=== PATIENT | female | born 1990 | race Caucasian/White ===

== ENCOUNTER → 2018-08-22 | Outpatient (CLI) | payer OTHER ==
[2018-08-25 07:47] LABS: Hepatits C Virus RNA DETECTED (Not detected); LOG HCV IU/mL 4.76 (<1.08)
== END | disposition home or self-care (01) ==
LOC: LABWHC1 11:58
PROVIDERS: ATTEND Physician Assistant
DX: Z11.59 Encounter for screening for other viral diseases (principal)
CPT/HCPCS: 36415; 87522

== ENCOUNTER → 2018-12-09 | Outpatient (CLI) | payer OTHER ==
[2018-12-09 12:52] LABS: HCT 40.6 % (34.0-46.0); HGB 14.1 gm/dL (11.4-16.0); MCHC 34.7 g/dL (31.0-37.0); MCV 89.3 fL (80.0-100.0); Mean Platelet Volume 6.9; Platelet Count 263 k/uL (150-450); Prothrombin Time 10.4 sec (9.0-12.0); RBC 4.55 m/uL (3.80-5.40); RDW 12.6 % (11.5-15.5); WBC 5.8 k/uL (3.8-10.6)
[2018-12-09 19:05] LABS: Albumin 4.4 g/dL (3.80-4.90); Bilirubin, Conjugated 0.3 mg/dL (0.20-0.40); Bilirubin,Unconjugated 0.6 mg/dL; Globulin 2.2 g/dL (1.6-3.3); Total Bilirubin 0.9 mg/dL (0.3-1.2); Total Protein 6.6 g/dL (6.2-8.2)
== END | disposition home or self-care (01) ==
LOC: LABWHC1 11:36
PROVIDERS: ATTEND Physician Assistant
DX: B18.2 Chronic viral hepatitis C (principal)
CPT/HCPCS: 36415; 80076; 85027; 85610; 87522

== ENCOUNTER → 2018-12-16 | Outpatient (CLI) | payer OTHER ==
--- NOTE | 2018-12-16 11:21 | US ---
EXAMINATION TYPE: US liver DATE OF EXAM: 12/16/2018 COMPARISON: NONE CLINICAL HISTORY: B18.2 Chronic Viral Hepatitis C. Chronic viral hepatitis C EXAM MEASUREMENTS: Liver Length: 15.3 cm Gallbladder Wall: 0.3 cm CBD: 0.3 cm Right Kidney: 10.5 x 4.0 x 5.0 cm Pancreas: wnl Liver: wnl . Homogeneous echotexture. Borders appear smooth and regular. No suspicious mass is seen. Gallbladder: wnl Evidence for sonographic Pearl's sign: no CBD: wnl Right Kidney: wnl IMPRESSION: Hepatic echotexture appears homogeneous despite the patient's known hepatocellular diseas e. No suspicious focal masses seen on today's examination to suggest hepatoma.
== END | disposition home or self-care (01) ==
LOC: RADUSWWP 09:59
PROVIDERS: ATTEND Internal Medicine
DX: B18.2 Chronic viral hepatitis C (principal)
CPT/HCPCS: 76705

== ENCOUNTER 2019-02-08 12:48 | Emergency (ER) | payer OTHER ==
--- NOTE | 2019-02-08 13:26 | ED ---
General Adult HPI - General Chief complaint: Upper Respiratory Infection Stated complaint: cough Time Seen by Provider: 02/08/19 13:09 Source: patient, RN notes reviewed Mode of arrival: ambulatory Limitations: no limitations - History of Present Illness Initial comments: 28-year-old female presents to the emergency department for a chief complaint of cough. patient has had a dry cough for 3 days. States she has also been congested and has had sensation of bilateral ear fullness. No history of fevers. No history of asthma. Patient denies sore throat. Patient denies ear pain. Patient has no other complaints at this time including shortness of breath, chest pain, abdominal pain, nausea or vomiting, headache, or visual changes. - Related Data Previous Rx's Medication Instructions Recorded Fluticasone Propionate [Flonase 1 spray EA NOSTRIL DAILY 7 Days #1 02/08/19 Allergy Relief] bottle Allergies Allergy/AdvReac Type Severity Reaction Status Date / Time No Known Allergies Allergy Verified 02/08/19 13:02 Review of Systems ROS Statement: Those systems with pertinent positive or pertinent negative responses have been documented in the HPI. ROS Other: All systems not noted in ROS Statement are negative. Past Medical History Past Medical History: No Reported History History of Any Multi-Drug Resistant Organisms: None Reported Past Surgical History: No Surgical Hx Reported Past Psychological History: No Psychological Hx Reported Smoking Status: Current every day smoker Past Alcohol Use History: Occasional Past Drug Use History: Marijuana General Exam Limitations: no limitations General appearance: alert, in no apparent distress Head exam: Present: atraumatic, normocephalic, normal inspection Eye exam: Present: normal appearance, PERRL, EOMI. Absent: scleral icterus, conjunctival injection, periorbital swelling ENT exam: Present: normal exam, normal oropharynx, mucous membranes moist, TM's normal bilaterally, normal external ear exam Neck exam: Present: normal inspection. Absent: tenderness, meningismus, lymphad enopathy Respiratory exam: Present: normal lung sounds bilaterally. Absent: respiratory distress, wheezes, rales, rhonchi, stridor Cardiovascular Exam: Present: regular rate, normal rhythm, normal heart sounds. Absent: systolic murmur, diastolic murmur, rubs, gallop, clicks Neurological exam: Present: alert Course Vital Signs 02/08/19 13:00 Temperature 98.0 F Pulse Rate 70 Respiratory 18 Rate Blood Pressure 121/75 O2 Sat by Pulse 98 Oximetry Medical Decision Making - Medical Decision Making She is well appearing. No respiratory distress. Vitals are stable. Patient is 98% on room air. Exam is benign. Lung sounds are clear. Patient does not have any significant past medical history. Chest x-ray shows no acute cardiopulmonary process. Patient likely is viral upper respiratory infection. She does not need antibiotics at this time his symptoms have only been for 3 days. They will follow up with primary care for recheck. Patient is having fullness in bilateral ears and likely is experiencing eustachian tube dysfunction from congestion. She will be given a nasal spray. She will follow up with primary care in 1-2 days and return if she has any worsening symptoms. Disposition Clinical Impression: Upper respiratory tract infection, Eustachian tube dysfunction Disposition: HOME SELF-CARE Condition: Good Instructions (If sedation given, give patient instructions): Upper Respiratory Infection (ED) Additional Instructions: Please use nasal spray as directed. Please follow-up with primary care in 1-2 days. Return to the emergency department if you develop any worsening symptoms. Prescriptions: Fluticasone Propionate [Flonase Allergy Relief] 1 spray EA NOSTRIL DAILY 7 Days #1 bottle Is patient prescribed a controlled substance at d/c from ED?: No Referrals: Tommie Nuñez DO [Primary Care Provider] - 1-2 days Time of Disposition: 13:53
--- NOTE | 2019-02-08 13:39 | XR ---
EXAMINATION TYPE: XR chest 2V DATE OF EXAM: 02/08/2019 COMPARISON: NONE HISTORY: Chest pain TECHNIQUE: Frontal and lateral views of the chest are obtained. FINDINGS: There is no focal air space opacity. No evidence for pneumothorax. No pleural effusion. The cardiac silhouette size is within normal limits. The osseous structures are grossly intact. IMPRESSION: 1. No acute cardiopulmonary process.
[2019-02-08 14:27] VITALS: BP 131/78; PULSE 78; RESP 16; TEMP 97.8
== END 2019-02-08 14:26 | disposition home or self-care (01) ==
LOC: EC 12:48
DX: J06.9 Acute upper respiratory infection, unspecified (principal); H69.83 Other specified disorders of Eustachian tube, bilateral; F17.200 Nicotine dependence, unspecified, uncomplicated
CPT/HCPCS: 71046; 99283

== ENCOUNTER 2019-11-19 21:12 | Inpatient (IN) | payer OTHER ==
[2019-11-19] MEDS ORDERED: SODIUM CHLORIDE 0.9% 1,000 ML IV ONE (21:48)
--- NOTE | 2019-11-19 22:09 | ED ---
General Adult HPI - General Chief complaint: Psychiatric Symptoms Stated complaint: mental health Time Seen by Provider: 11/19/19 21:19 Source: patient, RN notes reviewed, old records reviewed Mode of arrival: ambulatory Limitations: no limitations - History of Present Illness Initial comments: Patient is a 29-year-old female who presents emergency room today with multiple complaints and scattered thoughts. She states she feels that she is dehydrated but is able to urinate. She is here with her grandmother. Poorly patient's mother states that she's been self medicating with narcotics for mental health illness, wants to have her evaluated by EPS.. She denies any suicidal thoughts. She stated that she "wants to talk to somebody". Patient is to smoking marijuana and taking and [place] today. She reports that she has not prescribed gets from friends or off the street. - Related Data Home Medications Medication Instructions Recorded Confirmed No Known Home Medications 11/19/19 11/19/19 Allergies Allergy/AdvReac Type Severity Reaction Status Date / Time No Known Allergies Allergy Verified 11/19/19 22:43 Review of Systems ROS Statement: Those systems with pertinent positive or pertinent negative responses have been documented in the HPI. ROS Other: All systems not noted in ROS Statement are negative. Past Medical History Past Medical History: No Reported History History of Any Multi-Drug Resistant Organisms: None Reported Past Surgical History: No Surgical Hx Reported Past Psychological History: No Psychological Hx Reported Past Alcohol Use History: Occasional Past Drug Use History: Marijuana General Exam - General Exam Comments Initial Comments: 29-year-old female. Scattered conversation. Hyperverbal. Limitations: no limitations General appearance: alert, in no apparent distress Head exam: Present: atraumatic Eye exam: Present: normal appearance, PERRL, EOMI. Absent: scleral icterus, conjunctival injection, periorbital swelling ENT exam: Present: normal exam, mucous membranes moist Neck exam: Present: normal inspection. Absent: tenderness, meningismus, lymphadenopathy Respiratory exam: Present: normal lung sounds bilaterally. Absent: respiratory distress, wheezes, rales, rhonchi, stridor Cardiovascular Exam: Present: regular rate, normal rhythm, normal heart sounds. Absent: systolic murmur, diastolic murmur, rubs, gallop, clicks GI/Abdominal exam: Present: soft, normal bowel sounds. Absent: distended, te nderness, guarding, rebound, rigid Extremities exam: Present: normal inspection, full ROM, normal capillary refill. Absent: tenderness, pedal edema, joint swelling, calf tenderness Back exam: Present: normal inspection Neurological exam: Present: alert, oriented X3, CN II-XII intact Psychiatric exam: Present: normal affect, normal mood, manic, other (Scattered confuse conversation.) Skin exam: Present: warm, dry, intact, normal color. Absent: rash Course Vital Signs 11/19/19 11/20/19 11/20/19 21:14 06:00 09:00 Temperature 98.0 F 98.5 F 98.1 F Pulse Rate 73 65 70 Respiratory 18 18 18 Rate Blood Pressure 154/94 119/78 124/76 O2 Sat by Pulse 97 100 100 Oximetry - Reevaluation(s) Reevaluation #1: 11/19/19 23:58 Patient was becoming agitated leaving her room. She was labile and crying. Offered Ativan and will take this by mouth. Waiting for EPS eval. Medical Decision Making - Medical Decision Making 29-year-old female presented today for evaluation with her grandmother. Patient states that she wants to talk to somebody for psychiatric illnesses. She states that she cannot keep her thoughts together. She does have hyperverbal tendency is fidgety. Some manic displayed behavior. Labs reviewed and normal. Patient is medically clear for EPS evaluation. Patient was waiting to be evaluated by EPS she was becoming quite agitated at other patients. She was given oral Ativan to help calm down. She subsequently was able to calm down and fell asleep and was not able to be awoken to be evaluated by EPS. EPS stated contact the patient's mother who was filling out a petition and patiently in the emergency department and assessed when she is more awake. - Lab Data Result diagrams: 11/19/19 22:00 11/19/19 22:00 Lab Results 11/19/19 11/19/19 11/19/19 Range/Units 22:00 22:00 22:00 WBC 11.7 H (3.8-10.6) k/uL RBC 4.68 (3.80-5.40) m/uL Hgb 14.0 (11.4-16.0) gm/dL Hct 42.6 (34.0-46.0) % MCV 91.0 (80.0-100.0) fL MCH 29.8 (25.0-35.0) pg MCHC 32.8 (31.0-37.0) g/dL RDW 13.7 (11.5-15.5) % Plt Count 252 (150-450) k/uL Neutrophils % 73 % Lymphocytes % 18 % Monocytes % 5 % Eosinophils % 2 % Basophils % 1 % Neutrophils # 8.5 H (1.3-7.7) k/uL Lymphocytes # 2.1 (1.0-4.8) k/uL Monocytes # 0.6 (0-1.0) k/uL Eosinophils # 0.2 (0-0.7) k/uL Basophils # 0.1 (0-0.2) k/uL Sodium (137-145) mmol/L Potassium (3.5-5.1) mmol/L Chloride (98-107) mmol/L Carbon Dioxide (22-30) mmol/L Anion Gap mmol/L BUN (7-17) mg/dL Creatinine (0.52-1.04) mg/dL Est GFR (CKD-EPI)AfAm (>60 ml/min/1.73 sqM) Est GFR (CKD-EPI)NonAf (>60 ml/min/1.73 sqM) Glucose (74-99) mg/dL Calcium (8.4-10.2) mg/dL Urine Color Urine Appearance (Clear) Urine pH (5.0-8.0) Ur Specific [place] (1.001-1.035) Urine Protein (Negative) Urine Glucose (UA) (Negative) Urine Ketones (Negative) Urine Blood (Negative) Urine Nitrite (Negative) Urine Bilirubin (Negative) Urine Urobilinogen (<2.0) mg/dL Ur Leukocyte Esterase (Negative) Urine HCG, Qual Not Detected (Not Detectd) Urine Opiates Screen Detected H (NotDetected) Ur Oxycodone Screen Not Detected (NotDetected) Urine Methadone Screen Not Detected (NotDetected) Ur Propoxyphene Screen Not Detected (NotDetected) Ur Barbiturates Screen Not Detected (NotDetected) U Tricyclic Antidepress Not Detected (NotDetected) Ur Phencyclidine Scrn Not Detected (NotDetected) Ur Amphetamines Screen Not Detected (NotDetected) U Methamphetamines Scrn Not Detected (NotDetected) U Benzodiazepines Scrn Not Detected (NotDetected) Urine Cocaine Screen Not Detected (NotDetected) U Marijuana (THC) Screen Detected H (NotDetected) Serum Alcohol mg/dL 11/19/19 11/19/19 Range/Units 22:00 22:15 WBC (3.8-10.6) k/uL RBC (3.80-5.40) m/uL Hgb (11.4-16.0) gm/dL Hct (34.0-46.0) % MCV (80.0-100.0) fL MCH (25.0-35.0) pg MCHC (31.0-37.0) g/dL RDW (11.5-15.5) % Plt Count (150-450) k/uL Neutrophils % % Lymphocytes % % Monocytes % % Eosinophils % % Basophils % % Neutrophils # (1.3-7.7) k/uL Lymphocytes # (1.0-4.8) k/uL Monocytes # (0-1.0) k/uL Eosinophils # (0-0.7) k/uL Basophils # (0-0.2) k/uL Sodium 139 (137-145) mmol/L Potassium 4.1 (3.5-5.1) mmol/L Chloride 104 (98-107) mmol/L Carbon Dioxide 27 (22-30) mmol/L Anion Gap 8 mmol/L BUN 8 (7-17) mg/dL Creatinine 0.74 (0.52-1.04) mg/dL Est GFR (CKD-EPI)AfAm >90 (>60 ml/min/1.73 sqM) Est GFR (CKD-EPI)NonAf >90 (>60 ml/min/1.73 sqM) Glucose 97 (74-99) mg/dL Calcium 9.3 (8.4-10.2) mg/dL Urine Color Light Yellow Urine Appearance Clear (Clear) Urine pH 6.5 (5.0-8.0) Ur Specific [place] 1.004 (1.001-1.035) Urine Protein Negative (Negative) Urine Glucose (UA) Negative (Negative) Urine Ketones Negative (Negative) Urine Blood Negative (Negative) Urine Nitrite Negative (Negative) Urine Bilirubin Negative (Negative) Urine Urobilinogen <2.0 (<2.0) mg/dL Ur Leukocyte Esterase Negative (Negative) Urine HCG, Qual (Not Detectd) Urine Opiates Screen (NotDetected) Ur Oxycodone Screen (NotDetected) Urine Methadone Screen (NotDetected) Ur Propoxyphene Screen (NotDetected) Ur Barbiturates Screen (NotDetected) U Tricyclic Antidepress (NotDetected) Ur Phencyclidine Scrn (NotDetected) Ur Amphetamines Screen (NotDetected) U Methamphetamines Scrn (NotDetected) U Benzodiazepines Scrn (NotDetected) Urine Cocaine Screen (NotDetected) U Marijuana (THC) Screen (NotDetected) Serum Alcohol <10 mg/dL Disposition Clinical Impression: Mood disorder Disposition: TRANSFER TO PSYCH HOSP/UNIT Is patient prescribed a controlled substance at d/c from ED?: No
[2019-11-19 22:24] LABS: Basophils # (A) 0.1 k/uL (0-0.2); Basophils % (A) 1 %; Eosinophils # (A) 0.2 k/uL (0-0.7); Eosinophils % (A) 2 %; HCT 42.6 % (34.0-46.0); Lymphocytes # (A) 2.1 k/uL (1.0-4.8); Lymphocytes % (A) 18 %; MCH 29.8 pg (25.0-35.0); MCHC 32.8 g/dL (31.0-37.0); Mean Platelet Volume 8.2; Monocytes # (A) 0.6 k/uL (0-1.0); Monocytes % (A) 5 %; Neutrophils # (A) 8.5 k/uL (1.3-7.7); Neutrophils % (A) 73 %; Platelet Count 252 k/uL (150-450); RBC 4.68 m/uL (3.80-5.40); RDW 13.7 % (11.5-15.5); WBC 11.7 k/uL (3.8-10.6)
[2019-11-19 22:25] LABS: Appearance,Urine Clear (Clear); Bilirubin,Urine Negative (Negative); Blood,Urine Negative (Negative); Color,Urine Light Yellow; Glucose,Urine (UA) Negative (Negative); Ketones,Urine Negative (Negative); Leukocyte Esterase,Urine Negative (Negative); Nitrite,Urine Negative (Negative); PH, Urine 6.5 (5.0-8.0); Protein,Urine Negative (Negative); Specific Gravity,Urine 1.004 (1.001-1.035); Urobilinogen,Urine <2.0 mg/dL (<2.0)
[2019-11-19 22:32] LABS: African American GFR (CKD) >90 (>60 ml/min/1.73 sqM); Alcohol <10 mg/dL; Anion Gap 8 mmol/L; Blood Urea Nitrogen 8 mg/dL (7-17); Calcium 9.3 mg/dL (8.4-10.2); Carbon Dioxide 27 mmol/L (22-30); Chloride 104 mmol/L (98-107); Glucose 97 mg/dL (74-99); Non-African American GFR(CKD) >90 (>60 ml/min/1.73 sqM); Potassium 4.1 mmol/L (3.5-5.1); Sodium 139 mmol/L (137-145)
[2019-11-19 22:40] LABS: Amphetamine Screen,Urine Not Detected (NotDetected); Barbiturate Screen,Urine Not Detected (NotDetected); Benzodiazepines Screen,Urine Not Detected (NotDetected); Cocaine Screen,Urine Not Detected (NotDetected); Methadone Screen, Urine Not Detected (NotDetected); Opiate Screen,Urine Detected (NotDetected); Oxycodone Screen, Urine Not Detected (NotDetected); Phencyclidine Screen,Urine Not Detected (NotDetected); Tricyclic Antidepressant,Urine Not Detected (NotDetected); Urn Cannabinoid Scrn Detected (NotDetected)
[2019-11-19] MEDS ORDERED: LORazepam 2 MG/ML INJ IM STA (23:39)
[2019-11-19] MEDS ORDERED: LORazepam 1 MG TAB PO STA (23:40)
[2019-11-20] MEDS ORDERED: LORazepam 1 MG TAB PO STA (00:26)
[2019-11-20] MEDS ORDERED: MAGNESIUM HYDROXIDE 2,400 MG/10 ML CUP PO PRN (09:53)
[2019-11-20] MEDS ORDERED: ZIPRASIDONE 20 MG VIAL IM PRN (09:53)
[2019-11-20] MEDS ORDERED: MAG HYDROX/AL HYDROX/SIMETH 30 ML CUP PO PRN (09:53)
[2019-11-20] MEDS ORDERED: LORazepam 2 MG/ML INJ IM PRN (09:56)
[2019-11-20] MEDS: NICOTINE 14MG/24HR PATCH TRANSDERM SCH ×2 (11:52→12:21)
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
[2019-11-20] MEDS: LORazepam 1 MG TAB PO PRN ×2 (12:21→17:53)
[2019-11-20] MEDS: ACETAMINOPHEN TAB 325 MG TAB PO PRN (19:31)
[2019-11-21] MEDS: LORazepam 1 MG TAB PO PRN (06:38)
[2019-11-21] MEDS: NICOTINE 14MG/24HR PATCH TRANSDERM SCH (08:29)
[2019-11-21] MEDS: OLANZapine 10 MG TAB PO SCH ×2 (10:04→20:11)
--- NOTE | 2019-11-21 12:28 | PN ---
PROGRESS NOTE DATE OF SERVICE: 11/21/2019 CHIEF COMPLAINT: The patient was admitted due to manic symptoms, disorganized behavior, psychotic thoughts, and relapse to opioid use. INTERVAL HISTORY: Patient has been doing fair. She had a quiet day yesterday. She was cooperative with aspects of care. She comes out on the unit. She interacts with others. At times she can appear quite energized and hyperverbal. Generally, her mood has been elevated. She did not attend groups yesterday. She presented to the nurse yesterday evening saying she had high anxiety and was requesting Ativan, though she was provided support rather than Ativan. She said she slept fairly well last night, woke up at 6 in the morning and was in a distressed state. She received 1 mg of Ativan at 6:30 this morning today. She has been up been and wondering. She is out on the unit quite a bit. She seems to be quite active. She engages with others. She is fairly intense in her manner. When we talked, it was difficult to follow her train of thought. We talked at length about her substance use history. She notes that she had about 4 years use of heroin, which she got off of in 2016. She noted however that from heroin she went on methadone. She also had a period of time on Suboxone. She stated that beyond that she had been prescribed Adipex, Adderall and Xanax at different points of time during the withdrawal. She said she had a 1 year period where she was free from abusive substances, though notes that when she gave to her child she was on methadone at that time. She notes that since being off by heroin she has been smoking marijuana pretty much on a daily basis up to the present. She is currently not on any regular psychotropics. MENTAL STATUS EXAM: Patient was somewhat restless. She gave fairly good eye contact, though at times she seemed to have a staring gaze. She answered questions with brief responses, though typically would veer off and make comments that were vague and unclear. She made comments about being involved in a "DNA program." She could not explain what she meant by that. She made other vague references that she could not explain. Her affect was intense. Her mood was elevated. She appeared to have delusional thinking. She did not appear to respond to internal stimuli. She voiced no thoughts of harm. She was oriented and alert. ASSESSMENT: I will continue the current diagnosis. She presents with psychotic symptoms. She also appears to have possible bipolar manic symptoms. Her condition is complicated by her ongoing substance use issues and I would assess her to be in acute withdrawal from marijuana. I will start the patient on Zyprexa 10 mg twice a day. The indication for Zyprexa is for psychotic symptoms as well as to address possible manic symptoms. In addition Zyprexa is indicated to help reduce physiologic stress response relating to acute withdrawal from opioids and marijuana. I had an extensive discussion with the patient regarding the time course and process of withdrawal. We discussed that her underlying diagnosis of possible psychiatric condition beyond substance abuse is indeterminate until she is at least a few months free of all abusive substances. I discussed indications for her antipsychotic/bipolar medication. I reviewed potential side effects including metabolic concerns and long-term issues relating to movement disorder. We will focus on stabilization and discharge planning. SIMONA / BILLY: [id number] /
[2019-11-21] MEDS: ACETAMINOPHEN TAB 325 MG TAB PO PRN (16:45)
--- NOTE | 2019-11-21 17:37 | P.MDCNMH ---
History of Present Illness H&P Date: 11/21/19 Chief Complaint: Anxiety Reason for consult - medical evaluation is a 29-year-old female with no significant past medical history admitted to the psychiatric unit for psychosis and possible polysubstance abuse disorder. Patient states that she does not have any significant past medical histories. She denies having any drug ALLERGIES she does not take any med ications on a chronic basis. Patient states that she has anxiety and depression in the past and was treated by her primary care physician with medications. She mentions that she was taking Paxil, Adderall and Xanax in the past. Patient denies having any active problems. Patient denies having any headaches blurring of vision and pain. No chest pain cough difficulty in breathing or palpitations . No abdominal pain nausea vomiting or diarrhea. No dysuria or hematuria. Past medical history: None ALLERGIES: NKDA Medications: None Surgical history: None Social history: Smokes marijuana, alcohol occasionally, previous history of polysubstance abuse Family history: Patient denies having any significant medical problems in her parents or siblings Review of Systems REVIEW OF SYSTEMS: NEURO:No c/o weakness of the extremties, No facial droop, No speech abnormalit ies. VASCULAR: Peripheral nervous system within the normal limits no edema HEMATOLOGIC: No history of easy bleeding and bruising . No recent infections . RESPIRATORY: No cough, No SOB, No chest discomfort. IMMUNE: No infections INTEGUMENT: no rashes OPHTHALMOLOGIC: No blurry vision and no eye discharge : No dysuria or hematuria LOSS PREVENTION REPRESENTATIVE: No bleeding PV CARDIAC: No chest pain , shortness of breath , paroxysmal nocturnal dyspnea MUSCULOSKELETAL : No Aches or pains in the joints or muscles. GI: No abdominal pain, Nausea or vomiting. No constipation or diarrhea. Past Medical History Past Medical History: No Reported History History of Any Multi-Drug Resistant Organisms: None Reported Past Surgical History: No Surgical Hx Reported Past Psychological History: No Psychological Hx Reported Past Alcohol Use History: Occasional Past Drug Use History: Marijuana Medications and Allergies Home Medications Medication Instructions Recorded Confirmed Type No Known Home Medications 11/19/19 11/19/19 History Allergies Allergy/AdvReac Type Severity Reaction Status Date / Time No Known Allergies Allergy Verified 11/19/19 22:43 Physical Exam Vitals: Vital Signs Temp Pulse Resp BP 11/21/19 06:47 98.2 F 109 H 16 122/81 GEN. APPEARANCE: alert, in no apparent distress HE ENT: No pallor no icterus. No JVD. Mucous membranes are moist. RESPIRATORY EXAM: normal lung sounds bilaterally, no wheeze or crackles CARDIOVASCULAR EXAM: S1 and S2 heard. GI/ABDOMINAL EXAM: abdomen is soft nontender no organomegaly bowel sounds positive. EXTREMITIES EXAM: No edema NEUROLOGICAL EXAM: alert, oriented X3 Cranial Nerve Examination - Cranial Nerves Cranial Nerve II- Optic: Intact Cranial Nerve III- Oculomotor: Intact Cranial Nerve IV- Trochlear: Intact Cranial Nerve V- Trigeminal: Intact Cranial Nerve - Abducens: Intact Cranial Nerve VII- Facial: Intact Cranial Nerve VIII- Auditory: Intact Cranial Nerve IX- Glossopharyngeal: Intact Cranial Nerve X- Vagus: Intact Cranial Nerve XI- Accessory: Intact Cranial Nerve XII- Hypoglossal: Intact Results CBC & Chem 7: 11/19/19 22:00 11/19/19 22:00 Assessment and Plan Assessment: ASSESSMENT Psychosis Polysubstance abuse disorder Nicotine dependence PLAN: Patient is admitted to the psychiatric unit for evaluation of psychosis. She does not have any medical issues. Continue with the current medical management. Will follow the patient on as-needed basis. Thank you for the consult.
[2019-11-22] MEDS: NICOTINE 14MG/24HR PATCH TRANSDERM SCH (07:56)
[2019-11-22] MEDS: OLANZapine 10 MG TAB PO SCH ×2 (07:56→20:51)
[2019-11-22] MEDS: ACETAMINOPHEN TAB 325 MG TAB PO PRN ×2 (09:39→21:57)
[2019-11-22] MEDS ORDERED: BENZTROPINE 2 MG/2 ML AMP IM ONE (10:30)
--- NOTE | 2019-11-22 10:56 | PN ---
PROGRESS NOTE DATE OF SERVICE: 11/22/2019 CHIEF COMPLAINT: The patient was admitted due to manic symptoms, disorganized behavior, psychotic thoughts, and relapsed opioid use. INTERVAL HISTORY: Patient has been doing fair overall. She seems to be improving in her mood, thoughts and behavior. She had a quiet day yesterday. She was cooperative with care. She comes out in the day area. She interacts appropriately. She attended one group yesterday. A note from group was as follows, "patient actively engaged in group discussion offering support and encouragement to fellow group members regarding recovery and coping mechanism." She slept well last night though had a little difficulty falling asleep. She said she was having problems quieting down when she went to bed and had a lot of difficulty with restless legs. She received a shot of Geodon which he said helped. She slept the rest of the night. She is up this morning. She is in a fairly good mood. We had an extensive discussion about admission issues. The patient was able to show some insight in regard to paranoid thinking. She described how there were real events that may have set off some of her concerns, though she has at least some recognition that her thoughts may have gone beyond reality. She is hopeful of being discharged soon. She talked about getting a job. 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 She has been cooperative with all aspects of care. She appears to tolerate her psychotropic medication. While she did have restless leg issues last night, she notes that has been a problem for her on off before coming into the hospital when she was not on any psychotropic medications. MENTAL STATUS: Patient sat without restlessness. She gave good eye contact. Psychomotor activity and speech were normal. She answered questions appropriately. Her affect was in a reasonable range. She had a calm manner. She smiled some. She was interactive. Her mood was even. She did not appear to be distressed. There was no indication of thought disorder. She voiced no thoughts of harm to self or others. Cognition was clear. ASSESSMENT: I will continue the current diagnosis and treatment plan. I will continue psychotropic medications the same. I discussed that some restless leg issues might relate to her Zyprexa as she is on a moderately higher dose. For the patient's part she said she would prefer not to reduce the dose since it appears to be helping and she wants to progress as quickly as she can to be discharged relatively soon. We will focus on stabilization and discharge planning. SIMONA / MARISABELN: [id number] /
[2019-11-22] MEDS: BENZTROPINE MESYLATE 1 MG TAB PO SCH (20:51)
[2019-11-23] MEDS: OLANZapine 10 MG TAB PO SCH ×2 (06:59→20:09)
[2019-11-23] MEDS: BENZTROPINE MESYLATE 1 MG TAB PO SCH ×2 (07:01→20:09)
[2019-11-23] MEDS: NICOTINE 14MG/24HR PATCH TRANSDERM SCH (09:43)
--- NOTE | 2019-11-23 10:03 | P.PN ---
Progress Note - Text Progress Note Date: 11/23/19 Interval History: Patient was seen walking the hallways and agreed to follow me to office ,stated that she started on Zyprexa on weekend and feeling less agitated ,still having insomnia at night and did require PRN IM Ayse,denies any hallucination and talked about post discharge plan to pursue [facility] for her addiction Mental Status Exam: General Appearance: Patient appears to be stated age is alert, less labile ,cooperative. Patient appears to have improving hygiene and grooming. Behavior: Patient was seating calmly ,no agitation Speech: Patient's speech is spontaneous coherent Mood/Affect: Mood "Great" affect is euphoric" Suicidality/Homicidality: denies any suicidal or homicidal ideation Perceptions: denies any hallucintion or delusional thinking Though content/process: tangential Memory and concentration: grossly intact Judgment and insight: improving Assessment Mood disorder unspecified, rule out secondary to substance use versus bipolar disorder. Cannabis use disorder Nicotine dependence Plan: -Patient continues to meet criteria for inpatient psychiatric admission for symptom stabilization and safety.Continue Zyprexa Rx on weekend ,PRN for agitation -SW on board for discharge planning. Encouraged the patient to participate in milieu. Awaiting deferral and court date.
[2019-11-23] MEDS: ACETAMINOPHEN TAB 325 MG TAB PO PRN (13:23)
[2019-11-23] MEDS: NICOTINE 21MG/24HR PATCH TRANSDERM SCH (17:01)
[2019-11-24] MEDS: NICOTINE 21MG/24HR PATCH TRANSDERM SCH (08:55)
[2019-11-24] MEDS: BENZTROPINE MESYLATE 1 MG TAB PO SCH ×2 (08:55→20:12)
[2019-11-24] MEDS: OLANZapine 10 MG TAB PO SCH ×2 (08:55→20:12)
--- NOTE | 2019-11-24 10:40 | P.PN ---
Progress Note - Text Progress Note Date: 11/24/19 Interval History: Patient was seen walking the hallways and agreed to follow me to office ,stated that she called [facility] recovery house and left voice message ,patient agreed to pursue it but stated that she can not afford weekly payment unless she get financial help from her mother Patient has a notebook with her and did show me her future goals Mental Status Exam: General Appearance: Patient appears to be stated age is alert, less labile ,cooperative. Patient appears to have improving hygiene and grooming. Behavior: Patient was seating calmly ,no agitation Speech: Patient's speech is spontaneous coherent Mood/Affect: Mood "Great" affect is euphoric" Suicidality/Homicidality: denies any suicidal or homicidal ideation Perceptions: denies any hallucintion or delusional thinking Though content/process: tangential Memory and concentration: grossly intact Judgment and insight: improving Assessment Mood disorder unspecified, rule out secondary to substance use versus bipolar disorder. Opiate use disorder Cannabis use disorder Plan: -Patient continues to meet criteria for inpatient psychiatric admission for symptom stabilization and safety.Continue Zyprexa ,PRN for agitation -SW on board for discharge planning. Encouraged the patient to participate in milieu.
[2019-11-24] MEDS: ACETAMINOPHEN TAB 325 MG TAB PO PRN (11:25)
[2019-11-25] MEDS: OLANZapine 10 MG TAB PO SCH ×2 (08:24→20:09)
[2019-11-25] MEDS: NICOTINE 21MG/24HR PATCH TRANSDERM SCH (08:24)
[2019-11-25] MEDS: BENZTROPINE MESYLATE 1 MG TAB PO SCH ×2 (08:24→20:09)
[2019-11-25] MEDS: ACETAMINOPHEN TAB 325 MG TAB PO PRN (10:07)
--- NOTE | 2019-11-25 14:11 | P.PN ---
Progress Note - Text Progress Note Date: 11/25/19 Interval History: Patient was seen walking the hallways and agreed to follow me to office ,stated that her mother is coming to visit today and patient is still undecisive about referral to [facility] ,she is waiting for deferral meeting and I discussed with her that if she will sign deferral she has to follow up with our recommendation ,she agreed about calling again [facility] .She denies any sleeping or appetite problem ,stated that she has been emotionally as she is missing her children From this morning(( ((Pt presented tearful to the manager front office. Pt states she had pancakes for breakfast which made her think of her children. Pt states she came to take her medications to help her to feel better, however, she was told she needed to wait. Pt states "if they don't give me my medications it's not going to be good for anyone." Pt indicated that she intends to act out if she doesn't get her meds. Pt was easily redirected.)) Mental Status Exam: General Appearance: Patient appears to be stated age is alert, less labile ,cooperative. Patient appears to have improving hygiene and grooming. Behavior: Patient was seating calmly ,no agitation Speech: Patient's speech is spontaneous coherent Mood/Affect: Mood "Great" affect is euphoric" Suicidality/Homicidality: denies any suicidal or homicidal ideation Perceptions: denies any hallucintion or delusional thinking Though content/process: tangential Memory and concentration: grossly intact Judgment and insight: improving Assessment Mood disorder unspecified, rule out secondary to substance use versus bipolar disorder. Opiate use disorder Cannabis use disorder Plan: -Patient continues to meet criteria for inpatient psychiatric admission for symptom stabilization and safety.Continue Zyprexa ,PRN for agitation - on board for discharge planning. Encouraged the patient to participate in milieu. Waiting for deferral meeting
[2019-11-26 07:24] VITALS: BP 135/87; PULSE 121; RESP 14; TEMP 97.7
[2019-11-26] MEDS: OLANZapine 10 MG TAB PO SCH (08:17)
[2019-11-26] MEDS: BENZTROPINE MESYLATE 1 MG TAB PO SCH (08:17)
[2019-11-26] MEDS: NICOTINE 21MG/24HR PATCH TRANSDERM SCH (08:17)
--- NOTE | 2019-11-26 20:25 | DS ---
DISCHARGE SUMMARY DATE OF ADMISSION: 11/19/2019 DATE OF DISCHARGE: 11/26/2019 RED HAT LINUX ENGINEER: Dr. Shaffer for history and physical and medical management. DISCHARGE DIAGNOSES: 1. Stimulant use disorder. Mood disorder due to stimulant use. 2. Opiate use disorder. 3. Mood disorder not otherwise specified versus bipolar disorder, manic, with psychotic features. HISTORY OF PRESENT ILLNESS: The patient is 29-year-old single female, mother of 2 children. She presented to the emergency room with a petition filed by her mother. The patient was delusional, talking to someone who was not aware, talking very fast. She stated that she was scared, but she was not able to explain why; talking about having a different color, but she does not have the right color. She was thinking that a red car was following her and there was a conspiracy against her. The patient was very disorganized and labile during the initial interview. Her urine drug screen was positive for marijuana and opiates. PAST PSYCHIATRIC HISTORY: This is her first inpatient psych hospitalization. She does not have any previous inpatient or outpatient treatment. She stated that she has been using Adderall on and off for the last 8 years. According to her, she was diagnosed with ADHD. Also she did admit that she has been using Xanax with the Adderall. SUBSTANCE USE HISTORY: Extensive history of substance abuse of REGISTERED NURSE STEP DOWN stimulants, as she was stealing her stepbrother's Concerta since age 16 and she was using Adderall on and off up to, according to her, 8 months prior to this admission. Heroin: She started snorting heroin 8 years ago and she even shared some needles. She stated that she was clean for 8 months, but she did relapse on [place] prior to her admission here. Also there is history of crack cocaine use and marijuana on a daily basis. For complete history and physical, please refer to my evaluation. HOSPITAL COURSE: The patient was admitted on an involuntary basis. PC was filed. She was refusing any medication. She was minimizing her drug addiction. On 11/21/[address] she was seen by Dr. Borden, who stated that the patient was cooperative but hyperverbal and easily agitated; she even did receive a couple of Ativan p.r.n. He stated that when the patient started talking, it was very difficult for him to follow her train of thought, as she was having racing thoughts. She even admitted to him that she abused Suboxone, methadone, Adderall, Xanax, Adipex, and the only time that she was clean from any drug was when she was . He did start her on Zyprexa 5 mg twice a day to control her psychotic symptoms and delusional thinking in addition to manic or hypomanic symptoms. The patient was able to tolerate Zyprexa, and I increased it to 10 mg twice a day. As she was complaining of tremors, we did add Cogentin as needed. The patient was attending every group and participating in an active way. The patient has a tendency to be very histrionic and at times very emotional and sobbing in one minute. We did discuss in detail about referring her to a recovery house for her polysubstance abuse and she did agree, especially as her mother stated that she will try to do a petition for drug abuse treatment if the patient is resistant to go to a recovery home. The patient was counseled about illicit drug use and the need for regular compliance with follow-up treatment and she did verbalize understanding. MENTAL STATUS EXAMINATION: At the time of discharge, the patient appears her stated age. She is well dressed and groomed. Her speech is coherent, at times circumstantial, but there is no psychomotor agitation. Her stated mood is "good." Affect is labile. She denies having any suicidal or homicidal ideation, intent or plan. She denies having any auditory or visual hallucinations. There is no evidence of delusional thinking and her thought process is linear and goal-directed. Memory and concentration are grossly intact. Insight and judgment are fair. DIAGNOSES: 1. Mood disorder not otherwise specified versus bipolar, manic, with psychotic features. 2. Polysubstance use disorder, opiate, cocaine, REGISTERED NURSE STEP DOWN stimulant. 3. Nicotine dependence. PLAN: The patient will be discharged today after the deferral meeting at 1 p.m. She is currently stable and not currently an imminent threat to herself or others. We continue her on Zyprexa 10 mg twice a day. I gave her a 2-week supply. Cogentin twice a day for 2-week supply. I did give her a 2-week supply of nicotine patch. The patient was counseled about the need for medication compliance and she verbalized understanding. The patient was counseled on abstaining from any recreational drugs. The patient will be transferred to recovery home for her addiction. MMJELLY / MARISABELN: [id number] /
== END 2019-11-26 13:55 | disposition home or self-care (01) | DRG 885 ==
LOC: EC 21:12 → 3MHU 11-20 09:42
PROVIDERS: ADMIT Psychiatry & Neurology Psychiatry; ATTEND Psychiatry & Neurology Psychiatry
DX: F31.2 Bipolar disorder, current episode manic severe with psychotic features (principal); F15.14 Other stimulant abuse with stimulant-induced mood disorder; F14.10 Cocaine abuse, uncomplicated; F11.10 Opioid abuse, uncomplicated; F12.10 Cannabis abuse, uncomplicated; F19.10 Other psychoactive substance abuse, uncomplicated; F17.210 Nicotine dependence, cigarettes, uncomplicated; F41.9 Anxiety disorder, unspecified; F90.9 Attention-deficit hyperactivity disorder, unspecified type; G25.81 Restless legs syndrome; G47.00 Insomnia, unspecified; Z56.0 Unemployment, unspecified; R45.1 Restlessness and agitation
CPT/HCPCS: 36415; 80048; 80306; 80320; 81003; 81025; 82075; 84443; 85025; 96360; 99285

== ENCOUNTER 2020-04-09 10:29 | Emergency (ER) | payer OTHER ==
[2020-04-09 10:47] VITALS: BP 151/102; PULSE 90; RESP 16; TEMP 98.9
[2020-04-09 11:29] LABS: Basophils # (A) 0.1 k/uL (0-0.2); Basophils % (A) 1 %; Eosinophils # (A) 0.2 k/uL (0-0.7); Eosinophils % (A) 2 %; Lymphocytes % (A) 28 %; MCH 30.7 pg (25.0-35.0); MCHC 34.2 g/dL (31.0-37.0); MCV 89.8 fL (80.0-100.0); Mean Platelet Volume 7.4; Monocytes # (A) 0.5 k/uL (0-1.0); Monocytes % (A) 6 %; Neutrophils # (A) 4.5 k/uL (1.3-7.7); Neutrophils % (A) 61 %; Platelet Count 313 k/uL (150-450); RBC 4.57 m/uL (3.80-5.40); RDW 12.7 % (11.5-15.5); WBC 7.4 k/uL (3.8-10.6)
--- NOTE | 2020-04-09 11:31 | ED ---
Abdominal Pain HPI - General Chief Complaint: Abdominal Pain Stated Complaint: fall, lt sided abd pain Time Seen by Provider: 04/09/20 10:59 Source: patient Mode of arrival: ambulatory Limitations: no limitations - History of Present Illness Initial Comments: Patient is a 29-year-old female presenting to the emergency Department with complaints of left lower quadrant abdominal pain and nausea that started yesterday. Patient states the pain is a dull ache at rest but then when she pushes on her lower abdomen she states that shoots up to an 8 or 9. She does admit to some nausea with it pain is worse. No vomiting, no diarrhea. She denies any fever or chills. She states she did start a new workout program and also started a new job where she lifts a lot so she is unsure if this is just a muscle ache. She denies history of ovarian cyst or diverticulitis. She denies any abdominal surgeries in her past. She has no further complaints at this time. Patient is afebrile upon arrival. - Related Data Previous Rx's Medication Instructions Recorded Benztropine Mesylate [Cogentin] 1 mg PO BID 14 Days tab 11/26/19 Nicotine 21Mg/24Hr Patch [Habitrol] 1 patch TRANSDERM DAILY 14 Days 11/26/19 patch OLANZapine [ZyPREXA] 10 mg PO BID 14 Days tab 11/26/19 Allergies Allergy/AdvReac Type Severity Reaction Status Date / Time No Known Allergies Allergy Verified 04/09/20 10:46 Review of Systems ROS Statement: Those systems with pertinent positive or pertinent negative responses have been documented in the HPI. ROS Other: All systems not noted in ROS Statement are negative. Past Medical History Past Medical History: Hypertension History of Any Multi-Drug Resistant Organisms: None Reported Past Surgical History: No Surgical Hx Reported Past Psychological History: No Psychological Hx Reported Smoking Status: Current every day smoker Past Alcohol Use History: None Reported Past Drug Use History: Marijuana General Exam - General Exam Comments Initial Comments: GENERAL: Patient is well-developed and well-nourished. Patient is nontoxic and in no acute distress. HEAD: Atraumatic, normocephalic. EYES: Pupils equal round and reactive to light, extraocular movements intact, sclera anicteric, conjunctiva are normal. Eyelids were unremarkable. ENT: TMs normal, nares patent, oropharynx clear without exudates. Moist mucous membranes. NECK: Normal range of motion, supple without lymphadenopathy or JVD. LUNGS: Unlabored respirations. Breath sounds clear to auscultation bilaterally and equal. No wheezes rales or rhonchi. HEART: Regular rate and rhythm without murmurs, rubs or gallops. ABDOMEN: Mild left lower quadrant pain on palpation. Soft, normoactive bowel sounds. No guarding, no rebound. No masses appreciated. : Deferred MUSCULOSKELETAL: Normal extremities with adequate strength and normal range of motion, no pitting or edema. No clubbing or cyanosis. NEUROLOGICAL: Patient is alert and oriented x 3. Motor and sensory are also intact. Cranial nerves II through XII grossly intact. Symmetrical smile. Normal speech, normal gait. PSYCH: Normal mood, normal affect. SKIN: Warm, Dry, normal turgor, no rashes or lesions noted. Limitations: no limitations Course Vital Signs 04/09/20 10:43 Temperature 98.9 F Pulse Rate 90 Respiratory 16 Rate Blood Pressure 151/102 O2 Sat by Pulse 99 Oximetry Medical Decision Making - Medical Decision Making Patient is a 29-year-old female here for left lower quadrant pain as starting yesterday. Her vital signs are stable, no history of abdominal surgeries. Lab work is unremarkable, urine is normal, hCG is not detected. Did do a pelvic ultrasound which revealed normal flow within both ovaries, left ovarian cyst approximately 1.8 cm. No other acute abnormalities. Discussed these findings with the patient. I recommended ibuprofen for discomfort. She'll follow-up with her [employer] [facility]. She is in agreement with this plan of care. She is stable for discharge. Return parameters were discussed with the patient she verbalized understanding. Case discussed Dr. Nicholas. - Lab Data Result diagrams: 04/09/20 11:10 04/09/20 11:10 Lab Results 04/09/20 04/09/20 04/09/20 Range/Units 11:10 11:10 11:10 WBC 7.4 (3.8-10.6) k/uL RBC 4.57 (3.80-5.40) m/uL Hgb 14.0 (11.4-16.0) gm/dL Hct 41.0 (34.0-46.0) % MCV 89.8 (80.0-100.0) fL MCH 30.7 (25.0-35.0) pg MCHC 34.2 (31.0-37.0) g/dL RDW 12.7 (11.5-15.5) % Plt Count 313 (150-450) k/uL MPV 7.4 Neutrophils % 61 % Lymphocytes % 28 % Monocytes % 6 % Eosinophils % 2 % Basophils % 1 % Neutrophils # 4.5 (1.3-7.7) k/uL Lymphocytes # 2.0 (1.0-4.8) k/uL Monocytes # 0.5 (0-1.0) k/uL Eosinophils # 0.2 (0-0.7) k/uL Basophils # 0.1 (0-0.2) k/uL Sodium (137-145) mmol/L Potassium (3.5-5.1) mmol/L Chloride (98-107) mmol/L Carbon Dioxide (22-30) mmol/L Anion Gap mmol/L BUN (7-17) mg/dL Creatinine (0.52-1.04) mg/dL Est GFR (CKD-EPI)AfAm (>60 ml/min/1.73 sqM) Est GFR (CKD-EPI)NonAf (>60 ml/min/1.73 sqM) Glucose (74-99) mg/dL Calcium (8.4-10.2) mg/dL Total Bilirubin (0.2-1.3) mg/dL AST (14-36) U/L ALT (4-34) U/L Alkaline Phosphatase (38-126) U/L Total Protein (6.3-8.2) g/dL Albumin (3.5-5.0) g/dL Urine Color Light Yellow Urine Appearance Clear (Clear) Urine pH 5.0 (5.0-8.0) Ur Specific [place] 1.005 (1.001-1.035) Urine Protein Negative (Negative) Urine Glucose (UA) Negative (Negative) Urine Ketones Negative (Negative) Urine Blood Negative (Negative) Urine Nitrite Negative (Negative) Urine Bilirubin Negative (Negative) Urine Urobilinogen <2.0 (<2.0) mg/dL Ur Leukocyte Esterase Negative (Negative) Urine HCG, Qual Not Detected (Not Detectd) 04/09/20 Range/Units 11:10 WBC (3.8-10.6) k/uL RBC (3.80-5.40) m/uL Hgb (11.4-16.0) gm/dL Hct (34.0-46.0) % MCV (80.0-100.0) fL MCH (25.0-35.0) pg MCHC (31.0-37.0) g/dL RDW (11.5-15.5) % Plt Count (150-450) k/uL MPV Neutrophils % % Lymphocytes % % Monocytes % % Eosinophils % % Basophils % % Neutrophils # (1.3-7.7) k/uL Lymphocytes # (1.0-4.8) k/uL Monocytes # (0-1.0) k/uL Eosinophils # (0-0.7) k/uL Basophils # (0-0.2) k/uL Sodium 140 (137-145) mmol/L Potassium 4.4 (3.5-5.1) mmol/L Chloride 106 (98-107) mmol/L Carbon Dioxide 23 (22-30) mmol/L Anion Gap 11 mmol/L BUN 13 (7-17) mg/dL Creatinine 0.74 (0.52-1.04) mg/dL Est GFR (CKD-EPI)AfAm >90 (>60 ml/min/1.73 sqM) Est GFR (CKD-EPI)NonAf >90 (>60 ml/min/1.73 sqM) Glucose 95 (74-99) mg/dL Calcium 10.2 (8.4-10.2) mg/dL Total Bilirubin 0.4 (0.2-1.3) mg/dL AST 26 (14-36) U/L ALT 17 (4-34) U/L Alkaline Phosphatase 62 (38-126) U/L Total Protein 7.4 (6.3-8.2) g/dL Albumin 4.4 (3.5-5.0) g/dL Urine Color Urine Appearance (Clear) Urine pH (5.0-8.0) Ur Specific [place] (1.001-1.035) Urine Protein (Negative) Urine Glucose (UA) (Negative) Urine Ketones (Negative) Urine Blood (Negative) Urine Nitrite (Negative) Urine Bilirubin (Negative) Urine Urobilinogen (<2.0) mg/dL Ur Leukocyte Esterase (Negative) Urine HCG, Qual (Not Detectd) Disposition Clinical Impression: LLQ abdominal pain Disposition: HOME SELF-CARE Condition: Stable Instructions (If sedation given, give patient instructions): Abdominal Pain (ED) Additional Instructions: Please return to the Emergency Department if symptoms worsen or any other conc erns. May take Tylenol or Motrin for any discomfort. Follow up with your regular doctor. Is patient prescribed a controlled substance at d/c from ED?: No Referrals: Tommie Nuñez DO [Primary Care Provider] - 1-2 days
[2020-04-09 11:36] LABS: ALT 17 U/L (4-34); AST 26 U/L (14-36); African American GFR (CKD) >90 (>60 ml/min/1.73 sqM); Albumin 4.4 g/dL (3.5-5.0); Alkaline Phosphatase 62 U/L (38-126); Anion Gap 11 mmol/L; Appearance,Urine Clear (Clear); Bilirubin,Urine Negative (Negative); Blood Urea Nitrogen 13 mg/dL (7-17); Blood,Urine Negative (Negative); Calcium 10.2 mg/dL (8.4-10.2); Carbon Dioxide 23 mmol/L (22-30); Chloride 106 mmol/L (98-107); Color,Urine Light Yellow; Glucose 95 mg/dL (74-99); Glucose,Urine (UA) Negative (Negative); Ketones,Urine Negative (Negative); Leukocyte Esterase,Urine Negative (Negative); Nitrite,Urine Negative (Negative); Non-African American GFR(CKD) >90 (>60 ml/min/1.73 sqM); Potassium 4.4 mmol/L (3.5-5.1); Protein,Urine Negative (Negative); Sodium 140 mmol/L (137-145); Specific Gravity,Urine 1.005 (1.001-1.035); Total Bilirubin 0.4 mg/dL (0.2-1.3); Total Protein 7.4 g/dL (6.3-8.2); Urobilinogen,Urine <2.0 mg/dL (<2.0)
--- NOTE | 2020-04-09 12:17 | US ---
EXAMINATION TYPE: US transvaginal DATE OF EXAM: 04/09/2020 COMPARISON: NONE CLINICAL HISTORY: LLQ pain x 2 days. Left pelvic pain x 1 day, 2, para 2, patient on co ntrol TECHNIQUE: Transvaginal ER exam. Date of LMP: 2 weeks ago EXAM MEASUREMENTS: Uterus: 7.1 x 3.6 x 4.5 cm Endometrial Stripe: 0.6 cm Right Ovary: 2.9 x 1.6 x 2.9 cm Left Ovary: 3.4 x 2.5 x 2.7 cm 1. Uterus: anteverted 2. Endometrium: wnl 3. Right Ovary: multiple follicles with largest measuring 1.1cm 4. Left Ovary: 1.8cm irregular cystic area, multiple follicles Spectral, color and waveform doppler imaging shows arterial and venous flow within the ovaries. 5. Bilateral Adnexa: wnl 6. Posterior cul-de-sac: small amount of free fluid IMPRESSION: Dominant follicle in the left ovary is 1.8 cm, minimal free fluid in the pelvis.
== END 2020-04-09 12:44 | disposition home or self-care (01) ==
LOC: EC 10:29
DX: N83.202 Unspecified ovarian cyst, left side (principal); F17.200 Nicotine dependence, unspecified, uncomplicated
CPT/HCPCS: 36415; 76830; 80053; 81003; 81025; 85025; 93975; 99284